=== PATIENT | female | born 1945 | race Caucasian/White ===

== ENCOUNTER → 2018-04-12 15:04 | Outpatient (CLI) | payer MEDICARE, SELFPAY ==
[2018-04-12 17:43] LABS: Absolute Lymphocyte Count 2.31 X10^3/ul (0.83-4.51); Absolute Neutrophil Count 2.3 X10^3/uL (2.0-7.7); Basophil# 0.03 X10^3/uL; Basophil% 0.6 % (0-1); Eosinophil# 0.19 X10^3/uL; Eosinophils% 3.5 % (0-5); Hematocrit 43.8 % (37-47); Hemoglobin 14.9 g/dl (12.0-15.0); Lymphocyte # 2.31 X10^3/ul (4.0); Lymphocyte % 42.4 % (19-41); Mean Corpuscular Hgb 32.5 pg (27.0-32.0); Mean Corpuscular Volume 95.6 fL (81-99); Mean Platelet Vol. 13.4 fl (6.2-12.0); Monocyte# 0.58 X10^3/uL; Monocyte% 10.6 % (0-10); Neutrophil # 2.34 X10^3/uL (2.7-7.7); Neutrophil % 42.9 % (47-70); POSITIVE COUNT NO; POSITIVE DIFFERENTIAL NO; POSITIVE MORPHOLOGY NO; Platelet Count 180 K/mm3 (150-450); RBC Distribution Width CV 12.9 % (11.6-14.6); RBC Distribution Width SD 44.2 fl (35.1-43.9); Red Blood Count 4.58 M/mm3 (4.2-5.4); White Blood Count 5.5 K/mm3 (4.4-11.0)
[2018-04-12 18:09] LABS: Vitamin B12 > 2000 pg/mL (211-911); Vitamin D,25 Hydroxy 57.3 ng/mL (29.95-100.01)
[2018-04-12 18:17] LABS: ALB/GLOB Ratio 1.1 RATIO (0.9-2.4); AST(SGOT) 15 U/L (15-37); Alanine Aminotransfer ALT/SGPT 25 U/L (13-56); Albumin, Serum 3.9 g/dL (3.2-5.0); Alkaline Phosphatase 87 U/L (45-117); Anion Gap 9 (5-15); BUN 12 mg/dL (7-18); BUN/Creat Ratio 16.7 RATIO (10-20); CRP < 2.90 mg/L (0.0-3.0); Calcium,Total 9.2 mg/dL (8.5-10.1); Chloride 109 mmol/L (98-107); Creatinine, Serum 0.72 mg/dL (0.55-1.02); EST Glomerular Filtration Rate 85 mL/min (>60); Est Glom Filt Rate - Afr Amer 102 mL/min (>60); Ferritin 81 ng/mL (8-252); Globulin 3.4 g/dL (2.2-4.2); Glucose 91 mg/dL (74-106); Potassium 3.7 mmol/L (3.5-5.1); Protein, Total 7.3 g/dL (6.4-8.2); Sodium Level 144 mmol/L (136-145); T4 Free Direct 0.97 ng/dL (0.76-1.46); Thyroid Stim Hormone (TSH) 0.87 uIU/mL (0.358-3.74)
[2018-04-12 19:44] LABS: Hemoglobin A1c 6.1 % (4.2-6.3)
[2018-04-16 15:14] LABS: Adrenocorticotropic Hormone 12.1 pg/mL (7.2-63.3)
== END ==
PROVIDERS: Visit Provider Family Medicine
DX: R25.2 Cramp and spasm (principal); R53.83 Other fatigue; R53.1 Weakness; I10 Essential (primary) hypertension; R73.01 Impaired fasting glucose; E03.9 Hypothyroidism, unspecified; E55.9 Vitamin D deficiency, unspecified; M25.50 Pain in unspecified joint
CPT/HCPCS: 36415; 80053; 82024; 82306; 82607; 82728; 83036; 84439; 84443; 85025; 86140

== ENCOUNTER → 2018-04-23 10:25 | Outpatient (CLI) | payer MEDICARE, SELFPAY ==
--- NOTE | 2018-04-23 10:25 | DT_ITS ---
This patient was seen during an EMR downtime April 22, 2018 - April 29, 2018. This patient may have a combination of paper and electronic documentation or all paper documentation. All documentation is viewable within the e-chart portion of [employer] for each patient visit.
== END ==
PROVIDERS: Family Provider Family Medicine; PCP Family Medicine; Visit Provider Family Medicine
DX: R69 Illness, unspecified (principal)

== ENCOUNTER → 2019-04-09 | Outpatient (CLI) | payer MEDICARE, SELFPAY ==
[2019-04-09 13:01] LABS: Vitamin D,25 Hydroxy 65.7 ng/mL (29.95-100.01)
[2019-04-09 13:06] LABS: Estradiol < 11.0 pg/mL; Free T3 2.5 pg/mL (2.18-3.98); T4 Free Direct 0.85 ng/dL (0.76-1.46); Thyroid Stim Hormone (TSH) 1.12 uIU/mL (0.358-3.74)
[2019-04-10 15:34] LABS: ANTINUCLEAR ANTIBODIES DIRECT Negative (Negative)
[2019-04-11 10:08] LABS: Anti-Thyroglobulin AB < 1.0 IU/mL (0.0-0.9); Thyroglobulin, Serum Qt. 0.8 ng/mL (1.5-38.5)
[2019-04-13 15:06] LABS: DHEA Sulfate 150.6 ug/dL (20.4-186.6); Testosterone, % Free 1.56 % (0.50-2.80); Testosterone, Free 0.28 ng/dL (0.10-0.85); Testosterone, Total 18 ng/dL (3-41); Thyroid Peroxidase AB 13 IU/mL (0-34)
[2019-04-14 09:59] LABS: T3 Reverse 14.2 ng/dL (9.2-24.1); Thyroglobulin Antibody < 1.0 IU/mL (0.0-0.9)
== END | disposition home or self-care (01) ==
PROVIDERS: Family Provider Family Medicine; PCP Family Medicine; Visit Provider Family Medicine
DX: R53.83 Other fatigue (principal); E03.9 Hypothyroidism, unspecified; E55.9 Vitamin D deficiency, unspecified; E53.8 Deficiency of other specified B group vitamins; E34.9 Endocrine disorder, unspecified; G90.1 Familial dysautonomia [Riley-Day]
CPT/HCPCS: 36415; 82306; 82627; 82670; 84402; 84403; 84432; 84439; 84443; 84481; 84482; 86038; 86225; 86235; 86376; 86800; 82626

== ENCOUNTER → 2019-04-28 08:00 | Outpatient (CLI) | payer MEDICARE, SELFPAY | PROVIDERS: Family Provider Family Medicine; PCP Family Medicine; Visit Provider Family Medicine | DX: Z00.00 Encounter for general adult medical examination without abnormal findings (principal) ==

== ENCOUNTER → 2019-07-23 | Outpatient (CLI) | payer MEDICARE, SELFPAY ==
[2019-07-23 13:08] LABS: T4 Free Direct 0.79 ng/dL (0.76-1.46); Thyroid Stim Hormone (TSH) 0.31 uIU/mL (0.358-3.74)
[2019-07-26 14:09] LABS: T3 Reverse 9.6 ng/dL (9.2-24.1)
== END | disposition home or self-care (01) ==
LOC: LAB.FUTURE 10:16
PROVIDERS: Family Provider Family Medicine; PCP Family Medicine; Visit Provider Family Medicine
DX: E03.9 Hypothyroidism, unspecified (principal)
CPT/HCPCS: 36415; 84439; 84443; 84482

== ENCOUNTER → 2019-09-10 10:10 | Outpatient (CLI) | payer MEDICARE, SELFPAY ==
[2019-09-10 12:57] LABS: Free T3 2.2 pg/mL (2.18-3.98); T4 Free Direct 0.83 ng/dL (0.76-1.46); Thyroid Stim Hormone (TSH) 0.06 uIU/mL (0.358-3.74)
[2019-09-16 15:27] LABS: T3 Reverse 13.4 ng/dL (9.2-24.1)
== END ==
LOC: LAB.FUTURE 10:10 → BFHLAB 11-04 15:09
PROVIDERS: Family Provider Family Medicine; PCP Family Medicine; Visit Provider Family Medicine
DX: E03.9 Hypothyroidism, unspecified (principal)
CPT/HCPCS: 36415; 84439; 84443; 84481; 84482

== ENCOUNTER → 2019-11-14 12:48 | Outpatient (CLI) | payer MEDICARE, SELFPAY ==
[2019-11-14 16:28] LABS: Anion Gap 6 (5-15); BUN 14 mg/dL (7-18); BUN/Creat Ratio 23.6 RATIO (10-20); Calcium,Total 9.1 mg/dL (8.5-10.1); Chloride 107 mmol/L (98-107); Creatinine, Serum 0.59 mg/dL (0.55-1.02); EST Glomerular Filtration Rate 105 mL/min (>60); Est Glom Filt Rate - Afr Amer 127 mL/min (>60); Glucose 84 mg/dL (74-106); Potassium 3.6 mmol/L (3.5-5.1); Sodium Level 143 mmol/L (136-145)
== END ==
PROVIDERS: Family Provider Family Medicine; PCP Family Medicine; Visit Provider Family Medicine
DX: E87.6 Hypokalemia (principal)
CPT/HCPCS: 36415; 80048

== ENCOUNTER → 2019-12-19 10:50 | Outpatient (CLI) | payer MEDICARE, SELFPAY ==
[2019-12-19 13:20] LABS: Anion Gap 6 (5-15); BUN 17 mg/dL (7-18); BUN/Creat Ratio 24.9 RATIO (10-20); Calcium,Total 9.6 mg/dL (8.5-10.1); Chloride 110 mmol/L (98-107); Creatinine, Serum 0.68 mg/dL (0.55-1.02); EST Glomerular Filtration Rate 89 mL/min (>60); Est Glom Filt Rate - Afr Amer 108 mL/min (>60); Glucose 98 mg/dL (74-106); Potassium 4.1 mmol/L (3.5-5.1); Sodium Level 140 mmol/L (136-145)
== END ==
PROVIDERS: PCP Family Medicine; Visit Provider Family Medicine
DX: E87.6 Hypokalemia (principal)
CPT/HCPCS: 36415; 80048

== ENCOUNTER → 2023-11-14 | Outpatient (CLI) | payer MEDICARE, SELFPAY ==
[2023-11-14 12:30] LABS: Absolute Lymphocyte Count 1.68 X10^3/uL (0.83-4.51); Absolute Neutrophil Count 2.5 X10^3/uL (2.0-7.7); Basophil# 0.04 X10^3/uL; Basophil% 0.8 % (0-1); Eosinophil# 0.22 X10^3/uL; Eosinophils% 4.5 % (0-5); Hematocrit 47.2 % (37-47); Hemoglobin 15.1 g/dL (12.0-15.0); Lymphocyte # 1.68 X10^3/ul (0.83-4.51); Lymphocyte % 34.5 % (19-41); Mean Corpuscular Hgb 30.9 pg (27.0-32.0); Mean Corpuscular Volume 96.5 fL (81-99); Mean Platelet Vol. 12.3 fl (6.2-12.0); Monocyte% 8.2 % (0-10); NRBC Flagged by Analyzer 0 % (0-5); Neutrophil # 2.52 X10^3/uL (2.7-7.7); Neutrophil % 51.8 % (47-70); Platelet Count 196 K/mm3 (150-450); RBC Distribution Width CV 12.4 % (11.6-14.6); RBC Distribution Width SD 44.4 fl (35.1-43.9); Red Blood Count 4.89 M/mm3 (4.2-5.4); White Blood Count 4.9 K/mm3 (4.4-11.0)
[2023-11-14 12:41] LABS: T3 Total - Triiodothyronine 1.01 ng/mL (0.6-1.81); Vitamin B12 526 pg/mL (211-911); Vitamin D,25 Hydroxy 60.6 ng/mL
[2023-11-14 12:51] LABS: Anion Gap 2 (5-15); BUN 13 mg/dL (7-18); BUN/Creat Ratio 20.3 RATIO (10-20); Calcium,Total 9.7 mg/dL (8.5-10.1); Chloride 110 mmol/L (98-107); Creatinine, Serum 0.64 mg/dL (0.55-1.02); EST Glomerular Filtration Rate 96 mL/min (>60); Est Glom Filt Rate - Afr Amer 116 mL/min (>60); Free T3 2.3 pg/mL (2.18-3.98); Glucose 99 mg/dL (74-106); Potassium 3.5 mmol/L (3.5-5.1); Sodium Level 141 mmol/L (136-145); T4 Free Direct 0.89 ng/dL (0.76-1.46); T4 Total, Thyroxin 8.3 ug/dL (4.8-13.9); Thyroid Stim Hormone (TSH) 0.01 uIU/mL (0.358-3.74)
[2023-11-19 01:06] LABS: T3 Reverse 13.6 ng/dL (9.2-24.1)
== END | disposition home or self-care (01) ==
LOC: MTLAB 10:21
PROVIDERS: PCP Family Medicine; Referring Provider Family Medicine; Visit Provider Family Medicine
DX: E03.9 Hypothyroidism, unspecified (principal); I10 Essential (primary) hypertension; E55.9 Vitamin D deficiency, unspecified; R53.83 Other fatigue
CPT/HCPCS: 36415; 80048; 82306; 82607; 84436; 84439; 84443; 84480; 84481; 84482; 85025

== ENCOUNTER → 2024-09-30 | Outpatient (CLI) | payer MEDICARE, SELFPAY ==
[2024-09-30 12:54] LABS: T3 Total - Triiodothyronine 0.91 ng/mL (0.6-1.81)
[2024-09-30 13:08] LABS: Free T3 1.9 pg/mL (2.18-3.98); T4 Free Direct 0.82 ng/dL (0.76-1.46); T4 Total, Thyroxin 7.9 ug/dL (4.8-13.9)
== END | disposition home or self-care (01) ==
LOC: BFHLAB 10:18
PROVIDERS: PCP Family Medicine; Referring Provider Family Medicine; Visit Provider Family Medicine
DX: E03.9 Hypothyroidism, unspecified (principal)
CPT/HCPCS: 36415; 84436; 84439; 84443; 84480; 84481

== ENCOUNTER → 2024-11-14 | Outpatient (CLI) | payer MEDICARE, SELFPAY ==
--- NOTE | 2024-11-14 14:23 | RAD_ITS ---
STUDY: XR Chest 2 Views 11/14/2024 2:36 PM REASON FOR EXAM: Female, 79 years old. DYSPNEA COMPARISON: 05/08/2008 TECHNIQUE: XR Chest 2 Views FINDINGS: There is no demonstrated pleural abnormality. There is an elevated right hemidiaphragm. Normal heart size. Normal mediastinum. Normal leon. Prominent appearing increased interstitial lung markings. Normal visualized pulmonary arteries. There is atherosclerotic calcification of the aortic arch with tortuosity. There are diffuse degenerative changes of the visualized thoracic spine. There is degenerative osteoarthritis of the bilateral shoulders. There are no acute findings of the upper abdomen. RAD/Chest PA and Lateral IMPRESSION: There are no acute findings. Electronically Signed: Ivan Everett MD at 14:54 EST ,
[2024-11-14 17:32] LABS: Absolute Neutrophil Count 3.1 X10^3/uL (2.0-7.7); Basophil# 0.06 X10^3/uL; Eosinophil# 0.23 X10^3/uL; Eosinophils% 3.8 % (0-5); Hematocrit 48.2 % (37-47); Hemoglobin 15.9 g/dL (12.0-15.0); Mean Corpuscular Hgb 31.5 pg (27.0-32.0); Mean Corpuscular Volume 95.6 fL (81-99); Mean Platelet Vol. 12.5 fl (6.2-12.0); Monocyte# 0.55 X10^3/uL; NRBC Flagged by Analyzer 0 % (0-5); Neutrophil # 3.05 X10^3/uL (2.7-7.7); Neutrophil % 49.9 % (47-70); Platelet Count 203 K/mm3 (150-450); RBC Distribution Width SD 45.9 fl (35.1-43.9); Red Blood Count 5.04 M/mm3 (4.2-5.4); White Blood Count 6.1 K/mm3 (4.4-11.0)
[2024-11-14 17:49] LABS: BNP,B-Type NATRIURETIC PEPTIDE 17.2 pg/mL (0-100)
[2024-11-14 17:56] LABS: T3 Total - Triiodothyronine 1.02 ng/mL (0.6-1.81); Vitamin B12 > 2000 pg/mL (211-911); Vitamin D,25 Hydroxy 70.5 ng/mL
[2024-11-14 18:20] LABS: ALB/GLOB Ratio 1.1 RATIO (0.9-2.4); AST(SGOT) 15 U/L (15-37); Alanine Aminotransfer ALT/SGPT 16 U/L (13-56); Albumin, Serum 3.9 g/dL (3.2-5.0); Alkaline Phosphatase 82 U/L (45-117); Anion Gap 8 (5-15); BUN 18 mg/dL (7-18); BUN/Creat Ratio 24.2 RATIO (10-20); Calcium,Total 10.4 mg/dL (8.5-10.1); Chloride 103 mmol/L (98-107); Creatinine, Serum 0.74 mg/dL (0.55-1.02); EST Glomerular Filtration Rate 80 mL/min (>60); Est Glom Filt Rate - Afr Amer 97 mL/min (>60); Free T3 2.2 pg/mL (2.18-3.98); Globulin 3.4 g/dL (2.2-4.2); Glucose 97 mg/dL (74-106); Potassium 3.7 mmol/L (3.5-5.1); Protein, Total 7.3 g/dL (6.4-8.2); Sodium Level 138 mmol/L (136-145); T4 Free Direct 0.85 ng/dL (0.76-1.46); T4 Total, Thyroxin 7.3 ug/dL (4.8-13.9); Thyroid Stim Hormone (TSH) 0.773 uIU/mL (0.358-3.740)
[2024-11-21 12:08] LABS: T3 Reverse 16.8 ng/dL (9.2-24.1); Thyroglobulin Antibody < 1.0 IU/mL (0.0-0.9); Thyroid Peroxidase AB 13 IU/mL (0-34)
== END | disposition home or self-care (01) ==
LOC: MTLAB 14:21
PROVIDERS: PCP Family Medicine; Referring Provider Family Medicine; Visit Provider Family Medicine
DX: R06.00 Dyspnea, unspecified (principal); R91.8 Other nonspecific abnormal finding of lung field; E03.9 Hypothyroidism, unspecified; E53.8 Deficiency of other specified B group vitamins; E55.9 Vitamin D deficiency, unspecified; E61.8 Deficiency of other specified nutrient elements
CPT/HCPCS: 71046; 80053; 82306; 82607; 83880; 84436; 84439; 84443; 84480; 84481; 84482; 85025; 86376; 86800

== ENCOUNTER → 2024-11-20 | Outpatient (CLI) | payer MEDICARE, SELFPAY ==
[2024-11-20 15:59] LABS: Ionized Calcium Order ORDER TUBE
[2024-11-20 18:06] LABS: PTHIN 49.3 pg/mL (18.4-80.1)
[2024-11-20 19:33] LABS: Ionized Calcium 1.33 mmol/L (1.09-1.30)
== END | disposition home or self-care (01) ==
PROVIDERS: PCP Family Medicine; Referring Provider Family Medicine; Visit Provider Family Medicine
DX: E83.52 Hypercalcemia (principal)
CPT/HCPCS: 36415; 82330; 83970

== ENCOUNTER → 2024-12-23 | Outpatient (CLI) | payer MEDICARE, SELFPAY ==
--- NOTE | 2024-12-23 17:40 | CT_ITS ---
PROCEDURE: CHEST WITH CONTRAST REASON FOR EXAM: Dyspnea. TECHNIQUE: Chest CT with intravenous contrast. COMPARISON: None. FINDINGS: Hardware: None. Lymph nodes: No mediastinal hilar or axillary lymphadenopathy. Heart and Vasculature: Normal heart size. Coronary artery calcifications. No pericardial effusion. Mild atherosclerosis of a normal caliber thoracic aorta. Lungs and Airways: Mild centrilobular emphysema. Mild bibasilar atelectasis. Pleura: No pleural effusion. No pneumothorax. Upper Abdomen: Right hepatic lobe 22 mm indeterminate enhancing lesion. Bones: Bone windows are unremarkable. Bones: Degenerative changes of the spine. Scoliosis. CT/Chest WITH Contrast IMPRESSION: No acute chest abnormalities. Mild emphysema. Right hepatic lobe 22 mm indeterminate enhancing lesion. Further characterizat ion with nonemergent liver protocol CT or MRI is recommended. One or more dose reduction techniques were used (e.g., Automated exposure contr ol, adjustment of the mA and/or kV according to patient size, use of iterative reconstruction technique). Reading Location: [id number]
== END | disposition home or self-care (01) ==
LOC: CT 17:33
PROVIDERS: PCP Family Medicine; Referring Provider Family Medicine; Visit Provider Family Medicine
DX: R06.00 Dyspnea, unspecified (principal)
CPT/HCPCS: 71260; Q9967; A4216

== ENCOUNTER → 2025-01-09 | Outpatient (CLI) | payer MEDICARE, SELFPAY ==
[2025-01-09 11:13] LABS: Ionized Calcium Order ORDER TUBE
== END | disposition home or self-care (01) ==
LOC: MTLAB 10:08
PROVIDERS: PCP Family Medicine; Referring Provider Family Medicine; Visit Provider Family Medicine
DX: E83.52 Hypercalcemia (principal)
CPT/HCPCS: 36415; 82330